=== PATIENT | male | born 1955 | race Caucasian/White ===

== ENCOUNTER 2016-04-28 07:53 | Day surgery (SDC) | payer OTHER ==
[2016-04-28] MEDS ORDERED: NS 0 ML ONE (08:44)
[2016-04-28] MEDS ORDERED: KEFZOL 2 GM/D5W 50 ML ONE (08:44)
[2016-04-28] MEDS ORDERED: 1/2 NS 500 ML ONE (08:44)
--- NOTE | 2016-04-28 09:20 | EKG Report ---
Test Performed on : 04/28/2016 09:04:38 AM Test Reason : pre-op Blood Pressure : / mmHG Vent. Rate : 070 BPM Atrial Rate : 070 BPM P-R Int : 186 ms QRS Dur : 230 ms QT Int : 530 ms P-R-T Axes : 000 -86 092 degrees QTc Int : 572 ms AV dual-paced rhythm with occasional atrial-paced complexes Abnormal ECG When compared with ECG of 03-NOV-2015 13:22, No significant change was found Confirmed by Harris Luo MD ([id number]) on 04/28/2016 9:05:37 PM
[2016-04-28] MEDS ORDERED: HEPARIN IV PRN (10:34)
[2016-04-28] MEDS ORDERED: TIGHT: 0.2 ML/HR MISC PRN (10:34)
[2016-04-28] MEDS ORDERED: NS 2,000 ML MISC PRN (10:34)
[2016-04-28] MEDS ORDERED: SODIUM CHLORIDE 0.9% 10 ML ONE (13:12)
[2016-04-28 14:08] LABS: ALBUMIN 2.3 g/dL (3.5-5.0); CALCIUM 5.5 mg/dL (8.8-10.2); POTASSIUM 2.4 mmol/L (3.5-5.1)
[2016-04-28] MEDS ORDERED: MORPHINE ONE (14:27)
[2016-04-28] MEDS ORDERED: DIPRIVAN 1% ONE (14:35)
[2016-04-28] MEDS ORDERED: OFIRMEV 1000 MG/ISOTONIC SOLN 100 ML ONE (14:38)
[2016-04-28] MEDS: DILAUDID ONE ×4 (14:43→14:57)
[2016-04-28] MEDS ORDERED: NEO-SYNEPHRINE ONE (14:46)
[2016-04-28] MEDS ORDERED: EPHEDRINE ONE (14:46)
[2016-04-28] MEDS ORDERED: XYLOCAINE-MPF 2% ONE (14:47)
--- NOTE | 2016-04-28 15:07 | OPERATIVE NOTE ---
PROCEDURE DATE: 04/28/2016 PREOPERATIVE DIAGNOSIS: Bilateral diabetic foot wounds. POSTOPERATIVE DIAGNOSIS: Bilateral diabetic foot wounds. PROCEDURES: 1. Right irrigation and debridement of diabetic foot ulcer to bone. 2. Left irrigation and debridement to bone diabetic foot ulcer. 3. Application of negative pressure vacuum assisted closure. SURGEON: Harpal Robertson MD STEEL TESTER: Corey Correa RN ANESTHESIA: General with LMA. BLOOD LOSS: About 20 mL. TOURNIQUET: No tourniquet on either side. DISPOSITION: To PACU, hemodynamically stable. INDICATION FOR PROCEDURE: Mr. Jamarcus Castañeda is a 60-year-old male who I have been following in the wound center for these bilateral lateral foot wounds. Unfortunately, he has taken a turn for the worse here recently, and has gotten a lot of necrotic tissue and so we ended up culturing those, which grew out some bacteria and he sort of kept getting worse and I was unable to debride all I needed to in the office and so I discussed about operative intervention. I went over with them the procedure, risks, benefits, potential complications. He expressed understanding and wished to proceed. DESCRIPTION OF PROCEDURE: Mr. Jamarcus Castañeda was identified in the dialysis area. Bilateral feet were marked as correct surgical site. He was then wheeled to the operating room, placed supine on the operating table. All bony prominences well padded. He was induced under general anesthesia. LMA was placed. Tourniquets were not applied to either leg because he has very bad vascular disease. Bilateral lower extremities were then prepped with Betadine solution, draped in normal sterile fashion. Surgical pause was performed. We identified the correct patient, the correct side, and the correct procedure. Preoperative antibiotics were given. I started with the left side. He had a lot of necrotic tissue there on that lateral forefoot wound and it was just lateral to the head of the 5th metatarsal. We ended up carrying that debridement level down through abductor digiti minimi tendon and took that tendon out and all the way down to that 5th metatarsal bone. Ended using a knife, forceps, rongeur, and curette to do my excisional debridement. I debrided all of that devitalized tissue back to normal-appearing tissue. He still did not have a lot of good blood flow, but it was normal appearing tissue at this point. We then irrigated everything copiously with normal saline until it looked very clean and then put a wound VAC sponge in the wound, covered it and hooked it to negative pressure. We hooked that up to 125 mmHg of suction and everything looked pretty good. We then wrapped it in Wilfred wrapped and then went over to the other side. This side was not as bad as the left. We started on this right side and opened up the wound just a little bit from the callused area around it and then excisionally debrided down to the level of that 5th metatarsal as well on this right side. I did not have to take all the tendon like we did on the left side and it was not near as big of a hole in the end either that we had to deal with. So after an excisional debridement that was thorough and got back to good looking tissue, then irrigated everything copiously with normal saline and then I packed that wound with iodoform and then gauze, Wilfred wrap was then placed. The patient was then awoken from general anesthesia, moved to his own bed and taken to the PACU in stable condition. Postoperatively, he will be weight bear as tolerated bilateral lower extremities in his postop shoes. He will get his first wound VAC change at the wound center this Sunday and then I will see him that .
[2016-04-28] MEDS ORDERED: PERCOCET-5 ONE (15:10)
[2016-04-28 15:38] VITALS: BP 81/48
== END 2016-04-28 15:46 | disposition home or self-care (01) ==
LOC: OR 07:53
PROVIDERS: ATTEND Orthopaedic Surgery
DX: E11.621 Type 2 diabetes mellitus with foot ulcer (principal)
CPT/HCPCS: 80069; 82948; 88304; 93005; 93010; J0131; J0690; J1170; J1644; J2270; J2370; J7030; J7040